=== PATIENT | female | born 1965 | race Hispanic/Latino ===

== ENCOUNTER 2020-10-16 17:12 | Emergency (ER) | payer OTHER, BC ==
[~2020-10-16] VITALS: Ht 157.5 cm; Wt 78.9 kg
[2020-10-16] MEDS ORDERED: HYDROCODON-ACE1 EA10 PO (19:07)
== END 2020-10-16 19:19 | disposition home or self-care (01) ==
LOC: ED 17:12
DX: S42.251A Displaced fracture of greater tuberosity of right humerus, initial encounter for closed fracture (principal); W01.10XA Fall on same level from slipping, tripping and stumbling with subsequent striking against unspecified object, initial encounter
CPT/HCPCS: 73030; 99283-25; A9270